=== PATIENT | female | born 1960 | race American Indian/Alaskan Native ===

== ENCOUNTER 2017-05-29 07:37 | Day surgery (SDC) | payer MEDICARE ==
[~2017-05-29 07:37] MED LIST: WATER FOR IRRIG STERILE IR ONE
--- NOTE | 2017-05-29 07:53 | Discharge Summary ---
Providers - Providers Date of discharge: 05/29/17 Attending physician: JANETTE SEYMOUR Primary care physician: TRISH SANCHEZ Hospitalization Condition: Good Procedures: egd Disposition: TO HOME OR SELFCARE Core Measure Documentation - Palliative Care Palliative Care/ Comfort Measures: Not Applicable - Core Measures Any of the following diagnoses?: none Exam - Physical Exam Narrative exam: unchanged from pre-op exam Plan Activity: no restrictions Weight Bearing Status: Full Weight Bearing Diet: regular Follow up with: TRISH SANCHEZ MD [Primary Care Provider] - 7 Days
[2017-05-29] MEDS ORDERED: DIPRIVAN 10 MG/ML IV ONE (08:00)
[2017-05-29] MEDS ORDERED: NACL 0.9% 1000 ML 1,000 ML IV SCH (08:00)
[2017-05-29] MEDS ORDERED: WATER FOR IRRIG STERILE IR ONE (08:01)
--- NOTE | 2017-05-29 08:25 | Operative Report ---
Operative Report Operative Report: EGD Post bypass DATE: 05/29/17 OPERATIVE REPORT - EGD PREOP DIAGNOSIS: gastric dyspepsia, GERD POSTOP DIAGNOSIS: same SURGERY: Upper endoscopy. SURGEON: Kimmy Turpin M.D. [employer] OPERATOR: n/a TYPE OF ANESTHESIA: MAC. ESTIMATED BLOOD LOSS: None. COMPLICATIONS: None. SPECIMENS REMOVED: None. FINDINGS: 1. normal esophagus 2. gastric pouch 40ml 3. gastrojejunal anastomosis is 15mm INDICATIONS:INDICATION FOR PROCEDURE: Patient is a 56-year-old female s/p gastric bypass in 2011. She has been complaining of gastric reflux and been taking ant acid medication for relief. She is here today for evaluation looking for pathology to explain her symptoms. PROCEDURE DETAILS: After consent was reviewed, patient was taken back to the operating room where patient was placed in the left lateral decubitus position and a bite block was placed in the mouth. After a time-out was called, MAC anesthesia was initiated. I then passed the endoscope into the patients oropharynx, into the esophagus, visualized the entire esophagus, which was all within normal limits. I then visualized the gastric pouch which was normal and about 40ml in size. The gastrojejunal anastomosis was normal at about 15mm. There were no ulcers or polyps appreciated. The proximal portion of the urbano limb was normal. I then desufflated the gastric pouch and removed the endoscope. Patient tolerated procedure well and was transferred to recovery room in good and stable condition.
--- NOTE | 2017-05-29 08:29 | Anesthesia Day of Surgery ---
Anesthesia Day of Surgery - Day of Surgery Patient Examined: Yes Patient H&P Reviewed: Yes Patient is NPO: Yes
--- NOTE | 2017-05-29 08:32 | Anesthesia Consultation ---
Anesthesia Consult and Med Hx Date of service: 05/29/17 - Airway Anesthetic Teeth Evaluation: Edentulous ROM Head & Neck: Adequate Mental/Hyoid Distance: Adequate Mallampati Class: Class III Intubation Access Assessment: Probably Good - Pulmonary Exam CTA: Yes - Cardiac Exam Cardiac Exam: RRR - Pre-Operative Health Status ASA Pre-Surgery Classification: ASA3 Proposed Anesthetic Plan: MAC - Pulmonary Hx Smoking: Yes (quit 2001) Hx Respiratory Symptoms: No Hx Pneumonia: No Hx Sleep Apnea: Yes (noncompliant with cpap) - Cardiovascular System Hx Hypertension: Yes (FOR 13 YRS) Hx Coronary Artery Disease: Yes Hx Heart Attack/AMI: Yes (2001) Hx Angina: Yes (last episode couple weeks ago) Hx Percutaneous Transluminal Coronary Angioplasty (PTCA): Yes (Stents x 2 (2001) ) Hx Cardia Arrhythmia: No - Central Nervous System Hx Neuromuscular Disorder: No Hx Back Pain: Yes (Cervical ACDF 2014) Hx Psychiatric Problems: Yes (Depression) - Gastrointestinal Hx Gastroesophageal Reflux Disease: Yes (well controlled with meds) - Endocrine Hx End Stage Renal Disease: No Hx Insulin Dependent Diabetes: No Hx Non-Insulin Dependent Diabetes: Yes (metformin ) Hx Thyroid Disease: No - Hematic Hx Sickle Cell Disease: No - Other Systems Hx Cancer: No Hx Obesity: Yes (gastric bypass in 2011 lost 20 lbs) - Additional Comments Anesthesia Medical History Comments: NAC
[2017-05-29 08:58] VITALS: BP 148/87
--- NOTE | 2017-05-29 09:25 | Post Anesthesia Evaluation ---
- Post Anesthesia Evaluation Patient Participated: Yes Airway Patent: Yes Stable Respiratory Function: Yes Nausea/Vomiting: No Temp > 96.8F: Yes Pain Manageable: Yes Adequeate Hydration: Yes Anesthesia Complications: No Block Receding Appropriately: Not Applicable Patient on Ventilator: No
== END 2017-05-29 07:38 | disposition home or self-care (01) ==
LOC: GIO 07:37
PROVIDERS: ATTEND Surgery
DX: K21.9 Gastro-esophageal reflux disease without esophagitis (principal); I10 Essential (primary) hypertension; E78.00 Pure hypercholesterolemia, unspecified; E11.9 Type 2 diabetes mellitus without complications; J45.909 Unspecified asthma, uncomplicated; F32.9 Major depressive disorder, single episode, unspecified; I25.10 Atherosclerotic heart disease of native coronary artery without angina pectoris; G47.30 Sleep apnea, unspecified; E66.9 Obesity, unspecified; Z68.41 Body mass index [BMI] 40.0-44.9, adult; Z98.84 Bariatric surgery status; Z79.899 Other long term (current) drug therapy; Z79.84 Long term (current) use of oral hypoglycemic drugs; Z87.891 Personal history of nicotine dependence; Z91.041 Radiographic dye allergy status; Z95.5 Presence of coronary angioplasty implant and graft
CPT/HCPCS: 43235; 82962; J2704; J7030

== ENCOUNTER 2017-12-25 11:00 | Outpatient (CLI) | payer MEDICARE | END 2017-12-25 11:01 | disposition home or self-care (01) | LOC: SLR 11:00 | PROVIDERS: ATTEND Otolaryngology | DX: G47.30 Sleep apnea, unspecified (principal) | CPT/HCPCS: G0399 ==

== ENCOUNTER 2018-01-16 11:00 | Outpatient (CLI) | payer MEDICARE | END 2018-01-16 11:01 | disposition home or self-care (01) | LOC: SLR 11:00 | PROVIDERS: ATTEND Otolaryngology | DX: G47.33 Obstructive sleep apnea (adult) (pediatric) (principal) | CPT/HCPCS: 95811 ==

== ENCOUNTER 2018-02-15 14:06 | Outpatient (CLI) | payer MEDICARE ==
--- NOTE | 2018-02-16 07:33 | Mammography Report ---
Bilateral mammogram: Compared to 02/05/16. CAD study utilized. Findings: Predominantly adipose tissue bilaterally. No mass or microcalcification. Benign axillary nodes. Focal asymmetry mid right breast seen on the MLO view. Impression: Focal asymmetry right breast. Recommend spot mag and if necessary sonographic examination. BI-RADS CATEGORY: 0 = Needs additional imaging evaluation ACR BI-RADS MAMMOGRAPHIC CODES: 0 = Needs additional imaging evaluation; 1 = Negative; 2 = Benign; 3 = Probably benign; 4 = Suspicious; 5 = Malignant; 6 = Known biopsy-proven malignancy COMMENT: 1. Dense breast tissue, i.e., adenosis, fibrocystic changes, etc., may obscure an underlying neoplasm. 2. Approximately 10% of cancers are not detected with mammography. 3. A negative mammography report should not delay biopsy if a clinically suspicious mass is present. COMMENT: Patient follow-up letters are generated in [employer].
== END 2018-02-15 14:07 | disposition home or self-care (01) ==
LOC: MAMMO 14:06
PROVIDERS: ATTEND Internal Medicine
DX: Z12.31 Encounter for screening mammogram for malignant neoplasm of breast (principal)
CPT/HCPCS: 77067

== ENCOUNTER 2018-07-11 05:52 | Day surgery (SDC) | payer MEDICARE ==
[2018-07-11] MEDS ORDERED: ECOTRIN PO NR (06:08)
[2018-07-11 06:44] LABS: Basophils # (Auto) 0.1 K/mm3 (0.0-0.1); Basophils % (Auto) 0.7 % (0.0-1.8); Eosinophils # (Auto) 0.1 K/mm3 (0.0-0.4); Eosinophils % (Auto) 0.8 % (0.0-4.3); Hemoglobin 11.1 gm/dl (10.1-14.3); Lymphocytes # (Auto) 2.8 K/mm3 (1.2-5.4); Lymphocytes % (Auto) 37.7 % (13.4-35.0); Mean Corpuscular HGB Conc 32 % (30-34); Mean Corpuscular Volume 80 fl (79-97); Monocytes # (Auto) 0.6 K/mm3 (0.0-0.8); Monocytes % (Auto) 7.4 % (0.0-7.3); Platelet Count 298 K/mm3 (140-440); Red Blood Count 4.37 M/mm3 (3.65-5.03); Red Cell Distribution Width 17.1 % (13.2-15.2)
[2018-07-11 06:46] LABS: BUN/Creatinine Ratio 20; Blood Urea Nitrogen 14 mg/dL (7-17); Calcium 8.8 mg/dL (8.4-10.2); Hemolysis Index 7
[2018-07-11 06:47] LABS: Mean Corpuscular Hemoglobin 26 pg (28-32)
[2018-07-11 06:54] LABS: INR 0.89 (0.87-1.13)
[2018-07-11 06:55] LABS: Partial Thromboplastin Time 27.8 Sec. (24.2-36.6)
[2018-07-11] MEDS ORDERED: NACL 0.9% 500 ML 500 ML IV SCH (07:00)
[2018-07-11] MEDS ORDERED: BENADRYL IV ONE (07:11)
[2018-07-11] MEDS ORDERED: BENADRYL ONE (07:12)
[2018-07-11] MEDS ORDERED: SOLU-Medrol ONE (07:12)
[2018-07-11] MEDS ORDERED: HEPARIN 10,000 UNITS/10 ML ONE (07:13)
[2018-07-11] MEDS ORDERED: XYLOCAINE 2% INFILTRATI ONE (07:13)
[2018-07-11] MEDS ORDERED: HEPARIN/NS 5000 UNIT/500ML(CATH LAB) 1,000 ML IR ONE (07:13)
[2018-07-11] MEDS ORDERED: CALAN ONE (07:13)
[2018-07-11] MEDS ORDERED: SUBLIMAZE ONE (07:14)
[2018-07-11] MEDS ORDERED: VERSED ONE (07:14)
[2018-07-11] MEDS ORDERED: NITROGLYCERIN SYRINGE 3 ML ONE (07:14)
[2018-07-11] MEDS ORDERED: SOLU-Medrol IV NR (08:00)
[2018-07-11] MEDS ORDERED: ULTRAM PO PRN (08:05)
--- NOTE | 2018-07-11 09:02 | Cardiac Catherization Report ---
CARDIAC CATHETERIZATION REPORT REFERRING PHYSICIAN: Dr. Rosalba Marquis INDICATION: The patient has known coronary artery disease with history of cardiac stenting to the right coronary artery. She presented with increasing exertional chest pain including one episode that occurred with rest and was relieved with nitroglycerin. She was referred for catheterization to evaluate her symptoms that seemed to be consistent with accelerating angina. PROCEDURE DESCRIPTION: The patient underwent left heart catheterization using the right radial artery. A TIG catheter was used to engage the right and left coronaries. A pigtail catheter was used to perform the left ventriculography. 23 minutes of sedation time was monitored. It began at 7:37 and ended at 8:00 a.m. There were no complications during the procedure. She tolerated it well. A TR band was placed at the conclusion of the procedure for hemostasis. There was no extra blood loss. There were no specimens removed. CORONARY ANATOMY: 1. Left main: The left main is a large vessel and is free of significant disease. It bifurcates into the left anterior descending and circumflex artery. 2. The left anterior descending is a large vessel and has mild 30% to 40% disease after the takeoff of the second diagonal. This disease is mild in nature. The left anterior descending has a large first diagonal that is free of significant disease. The remaining segments of the left anterior descending are free of significant disease. 3. The circumflex is a medium sized vessel and has mild luminal irregularities of 10% to 20%, particularly in the mid segment. There were no flow-limiting obstructions in the circumflex system. 4. The right coronary: The right coronary artery is large and dominant and there appears to be 2 stents in the mid and distal segments of the right coronary artery. The stents are widely patent without any significant restenosis. The distal right coronary artery bifurcates into the PLV and PDA branches. These vessels are quite large. In one branch of the posterolateral ventricular branch, there was a 40% to 50% stenosis in the proximal segment. This vessel was small to medium size. This lesion is non-flow limiting. 5. Left ventriculography: Left ventricular diastolic filling pressure was 19 mmHg. Upon pullback, there was no gradient across the aortic valve. The aortic pressure was 144/88. FINAL CONCLUSIONS: 1. Continued patency of the right coronary artery stents present in the mid and distal segments. 2. Mild posterolateral ventricular branch disease of 40%. Compared to previous reports, there appears to be no significant change. 3. Mild left anterior descending disease, particularly in the mid segment after the second diagonal. 4. Mild luminal irregularities of the circumflex. 5. Normal left ventricular function with estimated ejection fraction 50% to 55% with end diastolic filling pressure of 19. PLAN: Based on review of the films, recommend continued medical therapy. We did not identify any significant lesions that required further intervention at this time. Aggressive risk factor modification also advised. JOB# [id number] GP/NTS
[2018-07-11 10:11] VITALS: BP 142/85
== END 2018-07-11 10:45 | disposition home or self-care (01) ==
LOC: CATHLABREC 05:52
PROVIDERS: ATTEND Internal Medicine
DX: I25.119 Atherosclerotic heart disease of native coronary artery with unspecified angina pectoris (principal); I10 Essential (primary) hypertension; K21.9 Gastro-esophageal reflux disease without esophagitis; G43.909 Migraine, unspecified, not intractable, without status migrainosus; I25.2 Old myocardial infarction; E78.00 Pure hypercholesterolemia, unspecified; E11.9 Type 2 diabetes mellitus without complications; F32.9 Major depressive disorder, single episode, unspecified; G47.30 Sleep apnea, unspecified; J45.909 Unspecified asthma, uncomplicated; E66.9 Obesity, unspecified; Z68.38 Body mass index [BMI] 38.0-38.9, adult; Z98.890 Other specified postprocedural states; Z91.013 Allergy to seafood; Z91.041 Radiographic dye allergy status; Z79.84 Long term (current) use of oral hypoglycemic drugs; Z90.49 Acquired absence of other specified parts of digestive tract; Z98.84 Bariatric surgery status; Z98.42 Cataract extraction status, left eye; Z98.41 Cataract extraction status, right eye; Z79.82 Long term (current) use of aspirin; Z87.891 Personal history of nicotine dependence
CPT/HCPCS: 36415; 80048; 85025; 85610; 85730; 93005; 93010; 93458; 96374; 96375; 99156; 99157; C1769; C1887; C1894; J1200; J1644; J2250; J2930; J3010; J7040; Q9967